=== PATIENT | female | born 1960 | race African-American/Black ===

== ENCOUNTER 2018-07-24 10:26 | Inpatient (IN) ==
--- NOTE | 2018-07-24 11:03 | ED ---
HPI General Chief complaint: SPINE NURSE Stated complaint: SPINE NURSE Time Seen by Provider: 07/24/18 10:52 History of Present Illness HPI Narrative: This patient reports that she is feeling suicidal and depressed. She also had some homicidal thoughts toward her . She says that she had sex with him multiple times recently and she says that she knows he has unprotected sex with multiple HIV-positive women. She says she has a burning in her genital region. She was here 2 weeks ago for bacterial vaginosis and took some of her medications but did not finish all of them. So she is specifically asking for psychiatric and SPINE NURSE evaluations. Symptom severity is moderate. Duration 1 week. Symptoms exacerbated by her noncompliance. No alleviating factors. She does not have a specific suicidal plan. Related Data Home Medications Medication Instructions Recorded Confirmed No Known Home Medications 07/24/18 07/24/18 Allergies Allergy/AdvReac Type Severity Reaction Status Date / Time No Known Allergies Allergy Verified 07/24/18 10:39 Review of Systems ROS: all other systems reviewed are negative [facility] Surgical History Surgical History H/O thyroidectomy (Acute) Hx of tonsillectomy (Acute) Social History Social History Substance History: No History of Abuse Second Hand Smoke Exposure: No Smoking Status: Current every day smoker Tobacco Type: Cigarettes How Often Do You Have a Drink Containing Alcohol: Monthly or less Recent Travel in [facility] within the Last 8 Weeks: No Recent Out of Country Travel within the Last 8 Weeks: No Exam Narrative Exam Narrative: GENERAL: Well-nourished, well-developed patient in no apparent distress. SKIN: Focused skin assessment reveals no rash and nodules. Skin is Warm and dry. HEAD: Atraumatic. Normocephalic. EYES: Pupils equal and round. No scleral icterus. No injection or drainage. ENT: No nasal bleeding or discharge. Mucous membranes pink and moist. NECK: Trachea midline. No JVD. CARDIOVASCULAR: Regular rate and rhythm. No murmur appreciated. RESPIRATORY: No accessory muscle use. Clear to auscultation. Breath sounds equal bilaterally. GASTROINTESTINAL: Abdomen soft, non-tender, nondistended. Hepatic and splenic margins not palpable. MUSCULOSKELETAL: No obvious deformities. No clubbing. No cyanosis. No edema. NEUROLOGICAL: Awake and alert. No obvious cranial nerve deficits. Motor grossly within normal limits. Normal speech. PSYCHIATRIC: Appropriate mood and affect; insight and judgment poor . Course Initial Documented Vital Signs Temperature 98.6 F 07/24/18 10:32 Pulse Rate 101 H 07/24/18 10:32 Respiratory Rate 18 07/24/18 10:32 Blood Pressure 123/59 L 07/24/18 10:32 Pulse Oximetry 94 L 07/24/18 10:32 Last Documented Vital Signs Temperature 98.6 F 07/24/18 10:32 Pulse Rate 101 H 07/24/18 10:32 Respiratory Rate 18 07/24/18 10:32 Blood Pressure 123/59 L 07/24/18 10:32 Pulse Oximetry 94 L 07/24/18 10:32 Medical Decision Making MDM Narrative Medical decision making narrative: 58-year-old female here for psychiatric and SPINE NURSE evaluations. I have ordered a medical clearance workup plus psychiatric evaluation. She will get a pelvic exam in D pod. The patient was seen as part of the RMA process by my attending physician, Dr. Guan. I, LORAINE Chapa, have reviewed Dr. Courtney note, recommended plan of care and disposition. Wet prep, chlamydia, gonorrhea ordered. Patient was seen on July 10, 2018 and her gonorrhea and chlamydia were not detected. I do not suspect cervicitis at this time and feel that empirical treatment with azithromycin and Rocephin are not warranted at this time. I will wait for the chlamydia and gonorrhea to result before patient is treated; patient will be contacted if these tests are positive to return for treatment. She was positive for bacterial vaginosis at her last visit and admits to not completing her treatment. She was negative for Trichomonas and vaginal yeast at her last visit also. CBC unremarkable. CMP unremarkable. TSH 1.110. Urinalysis without signs of infection and no culture indicated. Chlamydia, gonorrhea pending. I do not feel empirical treatment is warranted at this time. Patient will be treated if results come back positive. Trichomonas, bacterial vaginosis, vaginal yeast negative. Positive for cocaine. Alcohol negative. LORAINE Montalvo has evaluated the patient psychologically and the patient will be admitted to psychiatry. Medical Screen Exam Complete: Yes Emergency Medical Condition: Yes Differential Diagnosis Differential Diagnosis: Depression, suicidal ideation, bacterial vaginosis, cervicitis, chlamydia, gonorrhea, trichomonas, exposure to HIV Lab Data Result diagrams: 07/24/18 11:05 07/24/18 11:05 Lab Results 07/24/18 07/24/18 07/24/18 Range/Units 11:05 11:05 11:05 WBC 6.9 (4.0-11.0) th/mm3 RBC 5.04 (4.00-5.30) mil/mm3 Hgb 14.3 (11.6-15.3) gm/dL Hct 42.5 (35.0-46.0) % MCV 84.4 (80.0-100.0) fL MCH 28.3 (27.0-34.0) pg MCHC 33.6 (32.0-36.0) % RDW 15.6 (11.6-17.2) % Plt Count 284 (150-450) th/mm3 MPV 7.5 (7.0-11.0) fL Neut % (Auto) 79.6 H (16.0-70.0) % Lymph % (Auto) 14.1 (9.0-44.0) % [place] % (Auto) 4.6 (0.0-8.0) % Eos % (Auto) 0.7 (0.0-4.0) % Baso % (Auto) 1.0 (0.0-2.0) % Neut # (Auto) 5.5 (1.8-7.7) th/mm3 Lymph # (Auto) 1.0 (1.0-4.8) th/mm3 [place] # (Auto) 0.3 (0.0-0.9) th/mm3 Eos # (Auto) 0.0 (0.0-0.4) th/mm3 Baso # (Auto) 0.1 (0.0-0.2) th/mm3 WBC Differential . Differential Comment Auto diff final Sodium 140 (136-145) meq/L Potassium 3.6 (3.5-5.1) meq/L Chloride 105 (98-107) meq/L Carbon Dioxide 29.3 (21.0-32.0) meq/L Anion Gap 6 (5-15) meq/L BUN 12 (7-18) mg/dL Creatinine 0.93 (0.50-1.00) mg/dL Estimated GFR 75 L (>89) mL/min Random Glucose 99 (74-106) mg/dL Calcium 8.5 (8.5-10.1) mg/dL Total Bilirubin 1.0 (0.2-1.0) mg/dL AST 36 (15-37) U/L ALT 33 (10-53) U/L Alkaline Phosphatase 60 (45-117) U/L Total Protein 6.8 (6.4-8.2) g/dL Albumin 3.4 (3.4-5.0) g/dL TSH 1.110 (0.358-3.740) uIU/mL Urine Color (Yellw/Straw) Urine Clarity (Clear) Urine pH (5.0-8.5) Ur Specific [place] (1.002-1.035) Urine Protein (Neg-Trace) mg/dL Urine Glucose (UA) (Negative) mg/dL Urine Ketones (Negative) mg/dL Urine Occult Blood (Negative) Urine Nitrate (Negative) Urine Bilirubin (Negative) Urine Urobilinogen (Less than 2) mg/dL Ur Leukocyte Esterase (Negative) Urine RBC (0-3) /hpf Urine WBC (0-5) /hpf Ur Squamous Epith Cells (0-5) /hpf Urine Mucus (Occasional) /lpf Micro UA Comment Ur Microscopic Review Urine Culture Comments Clue Cells (Wet Prep) (None Seen) Trichomonas (Wet Prep) (None Seen) Yeast (Wet Prep) (None Seen) Urine Opiates Screen Neg (Neg) Ur Barbiturates Screen Neg (Neg) Ur Amphetamines Screen Neg (Neg) U Benzodiazepines Scrn Neg (Neg) Urine Cocaine Screen Pos H (Neg) U Cannabinoids Screen Neg (Neg) Serum Alcohol Less than 3 (0-5) mg/dL 07/24/18 07/24/18 Range/Units 11:05 11:34 WBC (4.0-11.0) th/mm3 RBC (4.00-5.30) mil/mm3 Hgb (11.6-15.3) gm/dL Hct (35.0-46.0) % MCV (80.0-100.0) fL MCH (27.0-34.0) pg MCHC (32.0-36.0) % RDW (11.6-17.2) % Plt Count (150-450) th/mm3 MPV (7.0-11.0) fL Neut % (Auto) (16.0-70.0) % Lymph % (Auto) (9.0-44.0) % [place] % (Auto) (0.0-8.0) % Eos % (Auto) (0.0-4.0) % Baso % (Auto) (0.0-2.0) % Neut # (Auto) (1.8-7.7) th/mm3 Lymph # (Auto) (1.0-4.8) th/mm3 [place] # (Auto) (0.0-0.9) th/mm3 Eos # (Auto) (0.0-0.4) th/mm3 Baso # (Auto) (0.0-0.2) th/mm3 WBC Differential Differential Comment Sodium (136-145) meq/L Potassium (3.5-5.1) meq/L Chloride (98-107) meq/L Carbon Dioxide (21.0-32.0) meq/L Anion Gap (5-15) meq/L BUN (7-18) mg/dL Creatinine (0.50-1.00) mg/dL Estimated GFR (>89) mL/min Random Glucose (74-106) mg/dL Calcium (8.5-10.1) mg/dL Total Bilirubin (0.2-1.0) mg/dL AST (15-37) U/L ALT (10-53) U/L Alkaline Phosphatase (45-117) U/L Total Protein (6.4-8.2) g/dL Albumin (3.4-5.0) g/dL TSH (0.358-3.740) uIU/mL Urine Color Yellow (Yellw/Straw) Urine Clarity Hazy H (Clear) Urine pH 5.0 (5.0-8.5) Ur Specific [place] 1.025 (1.002-1.035) Urine Protein Negative (Neg-Trace) mg/dL Urine Glucose (UA) Negative (Negative) mg/dL Urine Ketones Trace H (Negative) mg/dL Urine Occult Blood Negative (Negative) Urine Nitrate Negative (Negative) Urine Bilirubin Negative (Negative) Urine Urobilinogen Less than 2 (Less than 2) mg/dL Ur Leukocyte Esterase Trace H (Negative) Urine RBC 1 (0-3) /hpf Urine WBC 4 (0-5) /hpf Ur Squamous Epith Cells 2 (0-5) /hpf Urine Mucus Few H (Occasional) /lpf Micro UA Comment Culture not ind Ur Microscopic Review Not Reportable Urine Culture Comments Culture not ind Clue Cells (Wet Prep) None seen (None Seen) Trichomonas (Wet Prep) None seen (None Seen) Yeast (Wet Prep) None seen (None Seen) Urine Opiates Screen (Neg) Ur Barbiturates Screen (Neg) Ur Amphetamines Screen (Neg) U Benzodiazepines Scrn (Neg) Urine Cocaine Screen (Neg) U Cannabinoids Screen (Neg) Serum Alcohol (0-5) mg/dL Discharge Plan Discharge Disposition Patient Disposition: Sign Out(ED Internal Use Only) Discharge Condition Condition: Stable Discharge Details Diagnosis: Encounter for psychiatric assessment, Pelvic pain Physicians Team ED Provider: Lacho Guan ED Midlevel Provider: Kell Lo Rxs /Orders / Referrals /Forms Prescriptions: No Action No Known Home Medications RF: 0 Status ED Status: Medically Cleared
[2018-07-24 11:23] LABS: Baso # (Auto) 0.1 th/mm3 (0.0-0.2); Eos % (Auto) 0.7 % (0.0-4.0); Hematocrit 42.5 % (35.0-46.0); Hemoglobin 14.3 gm/dL (11.6-15.3); Lymph % (Auto) 14.1 % (9.0-44.0); Mean Corpuscular HGB Conc 33.6 % (32.0-36.0); Mean Corpuscular Hemoglobin 28.3 pg (27.0-34.0); Mean Corpuscular Volume 84.4 fL (80.0-100.0); Mean Platelet Volume 7.5 fL (7.0-11.0); Mono # (Auto) 0.3 th/mm3 (0.0-0.9); Mono % (Auto) 4.6 % (0.0-8.0); Neut # (Auto) 5.5 th/mm3 (1.8-7.7); Neut % (Auto) 79.6 % (16.0-70.0); Platelet Count 284 th/mm3 (150-450); Red Blood Count 5.04 mil/mm3 (4.00-5.30); Red Cell Distribution Width 15.6 % (11.6-17.2); White Blood Count 6.9 th/mm3 (4.0-11.0)
[2018-07-24 11:39] LABS: Amphetamine Screen,Urine Neg (Neg); Barbiturate Screen,Urine Neg (Neg); Cannabinoid Screen,Urine Neg (Neg); Cocaine Screen,Urine Pos (Neg); Opiate Screen,Urine Neg (Neg)
[2018-07-24 11:43] LABS: Alanine Aminotransferase 33 U/L (10-53); Albumin 3.4 g/dL (3.4-5.0); Anion Gap 6 meq/L (5-15); Aspartate Aminotransferase 36 U/L (15-37); Blood Urea Nitrogen 12 mg/dL (7-18); Calcium 8.5 mg/dL (8.5-10.1); Carbon Dioxide 29.3 meq/L (21.0-32.0); Chloride 105 meq/L (98-107); Glomerular Filtration Rate 75 mL/min (>89); Glucose,Random 99 mg/dL (74-106); Potassium 3.6 meq/L (3.5-5.1); Sodium 140 meq/L (136-145)
[2018-07-24 11:53] LABS: Alkaline Phosphatase 60 U/L (45-117); Total Protein 6.8 g/dL (6.4-8.2)
[2018-07-24 11:55] LABS: Bilirubin,Urine Negative (Negative); Clarity,Urine Hazy (Clear); Color,Urine Yellow (Yellw/Straw); Glucose,Urine (UA) Negative (Negative); Leukocyte Esterase,Urine Trace (Negative); Mucus,Urine Few /lpf (Occasional); Nitrite,Urine Negative (Negative); Specific Gravity,Urine 1.025 (1.002-1.035); Squamous Epithelial Cell,Urine 2 /hpf (0-5)
[2018-07-24] MEDS ORDERED: Aluminum/Magnesium/Simethacone Susp 30 ML UDC PO PRN (13:16)
[2018-07-24] MEDS ORDERED: Ibuprofen 600 MG Tablet PO PRN (13:36)
[2018-07-24] MEDS: Sertraline 50 MG Tablet PO SCH (13:57)
[2018-07-24] MEDS ORDERED: Ibuprofen 600 MG Tablet PO SCH (14:00)
--- NOTE | 2018-07-24 14:33 | ED ---
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 Time Seen by Provider: 07/24/18 10:52 - Related Data Home Medications Medication Instructions Recorded Confirmed No Known Home Medications 07/24/18 07/24/18 Allergies Allergy/AdvReac Type Severity Reaction Status Date / Time No Known Allergies Allergy Verified 07/24/18 10:39 PMFSH - History History Provided By: Patient - Surgical History Surgical History: Surgical History (Last Reviewed 07/24/18 @ 11:01 by Lacho Guan MD) H/O thyroidectomy Hx of tonsillectomy - Tobacco History Second Hand Smoke Exposure: No Tobacco Use In Past 30 Days: Yes Smoking Status: Current every day smoker Tobacco Type: Cigarettes - Alcohol History How Often Do You Have a Drink Containing Alcohol: Monthly or less - Substance Use History Substance History: Active Abuse - Substance Use Type Crack/Cocaine Status: Active Route Used: Inhalation Frequency: daily Last Used: 07/23/18 Reason for Use: Get High Marijuana Status: Active Route Used: Inhalation Frequency: occasional Last Used: unknown Reason for Use: Get High Alcohol Status: Active Route Used: By Mouth Frequency: social Last Used: 07/23/18 Reason for Use: Socialization - Travel History Recent Travel in the [place] Within the Last 8 Weeks: No Recent Travel Out of the Country Within the Last 8 Weeks: No - Immunization History Tetanus Immunization: Unsure Psychiatric History - Psychiatric History Psychiatric Treatment History: History of Psychiatric Treatment, History of Hospitalization in a Psychiatric Facility Initial Documented Vital Signs Temperature 98.6 F 07/24/18 10:32 Pulse Rate 101 H 07/24/18 10:32 Respiratory Rate 18 07/24/18 10:32 Blood Pressure 123/59 L 07/24/18 10:32 Pulse Oximetry 94 L 07/24/18 10:32 Last Documented Vital Signs Temperature 98.6 F 07/24/18 10:32 Pulse Rate 101 H 07/24/18 10:32 Respiratory Rate 18 07/24/18 10:32 Blood Pressure 123/59 L 07/24/18 10:32 Pulse Oximetry 94 L 07/24/18 10:32 MDM - Psych - Lab Data Result diagrams: 07/24/18 11:05 07/24/18 11:05 - Lab Data Lab Results 07/24/18 07/24/18 07/24/18 Range/Units 11:05 11:05 11:05 WBC 6.9 (4.0-11.0) th/mm3 RBC 5.04 (4.00-5.30) mil/mm3 Hgb 14.3 (11.6-15.3) gm/dL Hct 42.5 (35.0-46.0) % MCV 84.4 (80.0-100.0) fL MCH 28.3 (27.0-34.0) pg MCHC 33.6 (32.0-36.0) % RDW 15.6 (11.6-17.2) % Plt Count 284 (150-450) th/mm3 MPV 7.5 (7.0-11.0) fL Neut % (Auto) 79.6 H (16.0-70.0) % Lymph % (Auto) 14.1 (9.0-44.0) % [place] % (Auto) 4.6 (0.0-8.0) % Eos % (Auto) 0.7 (0.0-4.0) % Baso % (Auto) 1.0 (0.0-2.0) % Neut # (Auto) 5.5 (1.8-7.7) th/mm3 Lymph # (Auto) 1.0 (1.0-4.8) th/mm3 [place] # (Auto) 0.3 (0.0-0.9) th/mm3 Eos # (Auto) 0.0 (0.0-0.4) th/mm3 Baso # (Auto) 0.1 (0.0-0.2) th/mm3 WBC Differential . Differential Comment Auto diff final Sodium 140 (136-145) meq/L Potassium 3.6 (3.5-5.1) meq/L Chloride 105 (98-107) meq/L Carbon Dioxide 29.3 (21.0-32.0) meq/L Anion Gap 6 (5-15) meq/L BUN 12 (7-18) mg/dL Creatinine 0.93 (0.50-1.00) mg/dL Estimated GFR 75 L (>89) mL/min Random Glucose 99 (74-106) mg/dL Calcium 8.5 (8.5-10.1) mg/dL Total Bilirubin 1.0 (0.2-1.0) mg/dL AST 36 (15-37) U/L ALT 33 (10-53) U/L Alkaline Phosphatase 60 (45-117) U/L Total Protein 6.8 (6.4-8.2) g/dL Albumin 3.4 (3.4-5.0) g/dL TSH 1.110 (0.358-3.740) uIU/mL Urine Color (Yellw/Straw) Urine Clarity (Clear) Urine pH (5.0-8.5) Ur Specific [place] (1.002-1.035) Urine Protein (Neg-Trace) mg/dL Urine Glucose (UA) (Negative) mg/dL Urine Ketones (Negative) mg/dL Urine Occult Blood (Negative) Urine Nitrate (Negative) Urine Bilirubin (Negative) Urine Urobilinogen (Less than 2) mg/dL Ur Leukocyte Esterase (Negative) Urine RBC (0-3) /hpf Urine WBC (0-5) /hpf Ur Squamous Epith Cells (0-5) /hpf Urine Mucus (Occasional) /lpf Micro UA Comment Ur Microscopic Review Urine Culture Comments Clue Cells (Wet Prep) (None Seen) Trichomonas (Wet Prep) (None Seen) Yeast (Wet Prep) (None Seen) Urine Opiates Screen Neg (Neg) Ur Barbiturates Screen Neg (Neg) Ur Amphetamines Screen Neg (Neg) U Benzodiazepines Scrn Neg (Neg) Urine Cocaine Screen Pos H (Neg) U Cannabinoids Screen Neg (Neg) Serum Alcohol Less than 3 (0-5) mg/dL 07/24/18 07/24/18 Range/Units 11:05 11:34 WBC (4.0-11.0) th/mm3 RBC (4.00-5.30) mil/mm3 Hgb (11.6-15.3) gm/dL Hct (35.0-46.0) % MCV (80.0-100.0) fL MCH (27.0-34.0) pg MCHC (32.0-36.0) % RDW (11.6-17.2) % Plt Count (150-450) th/mm3 MPV (7.0-11.0) fL Neut % (Auto) (16.0-70.0) % Lymph % (Auto) (9.0-44.0) % [place] % (Auto) (0.0-8.0) % Eos % (Auto) (0.0-4.0) % Baso % (Auto) (0.0-2.0) % Neut # (Auto) (1.8-7.7) th/mm3 Lymph # (Auto) (1.0-4.8) th/mm3 [place] # (Auto) (0.0-0.9) th/mm3 Eos # (Auto) (0.0-0.4) th/mm3 Baso # (Auto) (0.0-0.2) th/mm3 WBC Differential Differential Comment Sodium (136-145) meq/L Potassium (3.5-5.1) meq/L Chloride (98-107) meq/L Carbon Dioxide (21.0-32.0) meq/L Anion Gap (5-15) meq/L BUN (7-18) mg/dL Creatinine (0.50-1.00) mg/dL Estimated GFR (>89) mL/min Random Glucose (74-106) mg/dL Calcium (8.5-10.1) mg/dL Total Bilirubin (0.2-1.0) mg/dL AST (15-37) U/L ALT (10-53) U/L Alkaline Phosphatase (45-117) U/L Total Protein (6.4-8.2) g/dL Albumin (3.4-5.0) g/dL TSH (0.358-3.740) uIU/mL Urine Color Yellow (Yellw/Straw) Urine Clarity Hazy H (Clear) Urine pH 5.0 (5.0-8.5) Ur Specific [place] 1.025 (1.002-1.035) Urine Protein Negative (Neg-Trace) mg/dL Urine Glucose (UA) Negative (Negative) mg/dL Urine Ketones Trace H (Negative) mg/dL Urine Occult Blood Negative (Negative) Urine Nitrate Negative (Negative) Urine Bilirubin Negative (Negative) Urine Urobilinogen Less than 2 (Less than 2) mg/dL Ur Leukocyte Esterase Trace H (Negative) Urine RBC 1 (0-3) /hpf Urine WBC 4 (0-5) /hpf Ur Squamous Epith Cells 2 (0-5) /hpf Urine Mucus Few H (Occasional) /lpf Micro UA Comment Culture not ind Ur Microscopic Review Not Reportable Urine Culture Comments Culture not ind Clue Cells (Wet Prep) None seen (None Seen) Trichomonas (Wet Prep) None seen (None Seen) Yeast (Wet Prep) None seen (None Seen) Urine Opiates Screen (Neg) Ur Barbiturates Screen (Neg) Ur Amphetamines Screen (Neg) U Benzodiazepines Scrn (Neg) Urine Cocaine Screen (Neg) U Cannabinoids Screen (Neg) Serum Alcohol (0-5) mg/dL
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
[2018-07-25 08:00] LABS: Calcium 8.4 mg/dL (8.5-10.1); Carbon Dioxide 26.8 meq/L (21.0-32.0); Potassium 3.8 meq/L (3.5-5.1)
[2018-07-25 08:05] LABS: Chol/HDL Ratio 3.43 Ratio; HDL Cholesterol 68.1 mg/dL (40.0-60.0)
--- NOTE | 2018-07-25 10:19 | P.PNPSY ---
Subjective Chief Complaint: Depression with suicidal and homicidal ideation Remarks: Subjective: Reviewed the patient's history with patient and staff nurse. History and physical examination indicates the patient has some homicidal as well as suicidal ideation associated with her relationship with her . She does not feel safe from him and is especially angry for his having affairs with other women. Patient will be interviewed for possible placement in a prison and evaluated for the need for medication versus group and individual psychotherapy. Patient will be continued on her sertraline 50 mg a day and Atarax for anxiety. Review of Systems ROS: Patient denies any acute anxiety at present but remains angry and uncertain of her control over her suicidal and homicidal ideas Mental Status Examination Appearance: Appropriate Consciousness: Alert Orientation: x4 Motor Activity: Normal gait Speech: Unremarkable Language: Adequate Fund of Knowledge: Adequate Attention and Concentration: Adequate Memory: Unremarkable Mood: Sad Affect: Sad Thought Process & Associations: Intact Thought Content: Appropriate Hallucination Type: None Delusion Type: None Suicidal Ideation: Yes Suicidal Plan: No Suicidal Intention: No Homicidal Ideation: Yes Homicidal Plan: No Homicidal Intention: No Insight: Fair Judgment: Impulsive Assessment and Plan - Plan Plan: Estimated LOS: [5] days Given that this patient continues to endorse suicidal ideation and reports one previous attempt by hanging she meets inpatient admission criteria. Therefore, I have admitted her voluntarily to a locked psychiatric inpatient unit for further evaluation and treatment as deemed necessary. The patient has signed written consent to initiate sertraline trial at 50 mg by mouth once daily to target her depressive symptoms. Additionally, she signed for as needed 10 mg oxazine every 6 hours for anxiety and 50 mg diphenhydramine by mouth at bedtime for insomnia. Patient has had the right of release process explained to her. Justification for Continued Inpatient Stay: Patient remains at risk for violent behavior toward self or others Request Healthcare Surrogate/Guardian Advocate?: No
[2018-07-25] MEDS: Sertraline 50 MG Tablet PO SCH (11:08)
[2018-07-25 15:56] LABS: Hemoglobin A1c 5.9 % (4.3-6.0)
[2018-07-26] MEDS: Sertraline 50 MG Tablet PO SCH (09:39)
--- NOTE | 2018-07-26 11:55 | P.PNPSY ---
Subjective Chief Complaint: Depression with suicidal and homicidal ideation Remarks: Reviewed electronic medical records and discussed case with staff. Follow-up was conducted in the day room with FILIPE Mckeon present. Nurse states that she is doing better and has been cooperative and compliant with medications. The patient relates that she feels "terrible". Claims that she still hopeless. However, she then goes on to say that she has been working are generously on finding a place to live once discharged. She reports that she does not feel staying with her daughter or her [id number] will be a tenable situation for her and feels it will exacerbate her depression. Therefore, she reports that she is trying to get into a sober living retirement. Seems her anxiety is mostly in the context of her discharge. She reports that she is still "up and down" throughout the night. Denies side effects from medication. Overall, her affect is brightened and she does appear to be doing better. Mental Status Examination Appearance: Appropriate Consciousness: Alert Orientation: x4 Motor Activity: Normal gait Speech: Unremarkable Language: Adequate Fund of Knowledge: Adequate Attention and Concentration: Adequate Memory: Unremarkable Mood: Sad Affect: Sad Thought Process & Associations: Intact Thought Content: Appropriate Hallucination Type: None Delusion Type: None Suicidal Ideation: Yes Suicidal Plan: No Suicidal Intention: No Homicidal Ideation: Yes Homicidal Plan: No Homicidal Intention: No Insight: Fair Judgment: Impulsive Assessment and Plan - Assessment (1) Major depressive disorder Code(s): F32.9 - Major depressive disorder, single episode, unspecified Status : Acute - Plan Plan: Patient will be reevaluated by the attending psychiatrist. Continue with current treatment plan. Patient is beginning to work on a discharge plan. Justification for Continued Inpatient Stay: Moving this patient to a less restrictive environment would likely result in decompensation. Request Healthcare Surrogate/Guardian Advocate?: No
[2018-07-27] MEDS: Sertraline 50 MG Tablet PO SCH (09:18)
--- NOTE | 2018-07-27 10:04 | P.PNPSY ---
Subjective Chief Complaint: Depression with suicidal and homicidal ideation Remarks: Reviewed electronic medical record and discussed with nursing staff. Rounded with FILIPE Rodgers. Patient in day room eating breakfast. She has lost her voice and in a low tone states that she has been feeling tired. She is eating and sleeping well. Discharge planning is a concern and she is working with case management to find a place to go at the time of discharge. According to previous notes that family is not interested in helping her with housing. Denies any suicidal or homicidal ideations. Review of Systems All other systems reviewed negative except as stated in HPI Mental Status Examination Appearance: Appropriate Consciousness: Alert Orientation: x4 Motor Activity: Normal gait Speech: Unremarkable Language: Adequate Fund of Knowledge: Adequate Attention and Concentration: Adequate Memory: Unremarkable Mood: Sad Affect: Sad Thought Process & Associations: Intact Thought Content: Appropriate Hallucination Type: None Delusion Type: None Suicidal Ideation: No Suicidal Plan: No Suicidal Intention: No Homicidal Ideation: No Homicidal Plan: No Homicidal Intention: No Insight: Fair Judgment: Impulsive Assessment and Plan - Assessment (1) Major depressive disorder Code(s): F32.9 - Major depressive disorder, single episode, unspecified Status : Acute - Plan Plan: Patient will be reevaluated by the attending psychiatrist. Continue with current treatment plan. Patient is beginning to work on a discharge plan. Justification for Continued Inpatient Stay: Moving patient to a less restrictive environment may result in her decompensation. Request Healthcare Surrogate/Guardian Advocate?: No
[2018-07-28 06:21] VITALS: BP 100/51; PULSE 77; RESP 17; TEMP 98.9; O2SAT 98
[2018-07-28] MEDS: Sertraline 50 MG Tablet PO SCH (08:48)
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
== END 2018-07-28 10:05 | disposition home or self-care (01) | DRG 881 ==
LOC: NEPD 10:26 → NEDA 13:22 → H260 14:23
PROVIDERS: ADMIT Psychiatry & Neurology Child & Adolescent Psychiatry; ATTEND Psychiatry & Neurology Child & Adolescent Psychiatry
CPT/HCPCS: 80048; 80053; 80061; 80307; 81001; 83036; 84443; 85025; 87210; 87491; 87591; 90792; 99285; Q0163